=== PATIENT | female | born 1985 ===

== ENCOUNTER 2019-02-25 16:39 | Inpatient (IN) | payer OTHER ==
[~2019-02-25] VITALS: Ht 165.1 cm; Wt 65.3 kg
[2019-02-25] MEDS ORDERED: PRENATAL CAPLE1 EAC1 PO (21:40)
[2019-02-25] MEDS ORDERED: FERROUS SULFAT325 MG PO (21:41)
== END 2019-03-01 13:52 | disposition home or self-care (01) | DRG 833 ==
LOC: LDR 16:39 → OB/GYN 16:39
PROVIDERS: ADMIT Obstetrics & Gynecology
PROC: BY4FZZZ Ultrasonography of Third Trimester, Single Fetus (ICD-10-PCS; principal; 2019-02-25)
PROC: 4A1HXCZ Monitoring of Products of Conception, Cardiac Rate, External Approach (ICD-10-PCS; 2019-02-25)
DX: O46.8X3 Other antepartum hemorrhage, third trimester (principal); O99.013 Anemia complicating pregnancy, third trimester; D64.89 Other specified anemias; Z34.83 Encounter for supervision of other normal pregnancy, third trimester

== ENCOUNTER 2019-03-29 16:45 | Inpatient (IN) | payer OTHER ==
[~2019-03-29] VITALS: Ht 165.1 cm; Wt 66.7 kg
[~2019-03-29 16:45] MED LIST: FERROUS SULFAT325 MG PO; IRON236 MG PO; PRENATAL CAPLE1 EAC1 PO
== END 2019-04-02 14:52 | disposition home or self-care (01) | DRG 788 ==
LOC: O/R 03-30 09:18 → OB/GYN 03-30 09:18
PROVIDERS: ADMIT Obstetrics & Gynecology
PROC: 4A0HXFZ Measurement of Products of Conception, Cardiac Rhythm, External Approach (ICD-10-PCS; 2019-03-30)
PROC: 10D00Z1 Extraction of Products of Conception, Low, Open Approach (ICD-10-PCS; principal; 2019-03-30 09:00)
DX: O82 Encounter for cesarean delivery without indication (principal); Z3A.39 39 weeks gestation of pregnancy; Z37.0 Single live birth